=== PATIENT | female | born 1990 ===

== ENCOUNTER 2021-12-15 19:44 | Emergency (ER) | payer OTHER ==
[~2021-12-15] VITALS: Ht 160 cm; Wt 78.9 kg
[2021-12-15] MEDS ORDERED: DICLOFENAC SODI75 MG PO (23:19)
== END 2021-12-16 00:16 | disposition home or self-care (01) ==
LOC: ER 19:44
DX: S29.9XXA Unspecified injury of thorax, initial encounter (principal); S21.202A Unspecified open wound of left back wall of thorax without penetration into thoracic cavity, initial encounter; W10.9XXA Fall (on) (from) unspecified stairs and steps, initial encounter; Y93.9 Activity, unspecified; Y92.019 Unspecified place in single-family (private) house as the place of occurrence of the external cause; R55 Syncope and collapse